=== PATIENT | female | born 1980 | race Caucasian/White ===

== ENCOUNTER 2023-05-18 11:02 | Inpatient (IN) | payer OTHER ==
[2023-05-18 11:55] VITALS: BMI 23.8
[2023-05-18] MEDS ORDERED: LORazepam 1 MG TABLET PO PRN (12:40)
[2023-05-18] MEDS ORDERED: NALOXONE HCL 0.4 MG/ML VIAL IM PRN (12:40)
[2023-05-18] MEDS ORDERED: LORazepam 2 MG TABLET PO ONE (12:40)
[2023-05-18] MEDS ORDERED: ACETAMINOPHEN 325 MG TABLET (FP) PO PRN (12:40)
[2023-05-18] MEDS ORDERED: DICYCLOMINE HCL 10 MG CAPSULE PO PRN (12:40)
[2023-05-18] MEDS ORDERED: POLYETHYLENE GLYCOL (HEALTHYLAX) 3350 17 GM PACKET PO PRN (12:40)
[2023-05-18] MEDS ORDERED: guaiFENesin 600 MG TABLET.ER (FP) PO PRN (12:40)
[2023-05-18] MEDS ORDERED: LOPERAMIDE HCL 2 MG CAPSULE PO PRN (12:40)
[2023-05-18] MEDS ORDERED: METHOCARBAMOL 500 MG TABLET PO PRN (12:40)
[2023-05-18] MEDS ORDERED: IBUPROFEN 600 MG TABLET (FP) PO PRN (12:40)
[2023-05-18] MEDS ORDERED: hydrOXYzine PAMOATE 25 MG CAPSULE (FP) PO PRN (12:40)
[2023-05-18] MEDS ORDERED: BISMUTH SUBSALICYLATE 262 MG/15 ML BTL PO PRN (12:40)
[2023-05-18] MEDS ORDERED: MAGNESIUM HYDROX 2400MG/30ML ORAL SUSPENSION 30 ML CUP PO PRN (12:40)
[2023-05-18] MEDS ORDERED: IBUPROFEN 400 MG TABLET (FP) PO PRN (12:40)
[2023-05-18] MEDS ORDERED: BENZOCAINE/MENTHOL (CHLORASEPTIC ) LOZENGE MM PRN (12:40)
[2023-05-18] MEDS ORDERED: BENZONATATE 200 MG CAPSULE PO PRN (12:40)
[2023-05-18] MEDS ORDERED: ONDANSETRON *ODT* 4 MG TABLET SL PRN (12:40)
[2023-05-18] MEDS ORDERED: MAG HYDROX/AL HYDROX/SIMETH 30 ML UNIT-DOSE CUP PO PRN (12:40)
[2023-05-18] MEDS ORDERED: NALOXONE HCL (KLOXXADO) 8 MG SPRAY NS PRN (12:40)
[2023-05-18] MEDS: PRENATAL VITAMINS W/ FOLIC ACID TABLET (FP) PO SCH (12:48)
[2023-05-18] MEDS: LORazepam 2 MG TABLET PO SCH ×2 (17:46→22:42)
[2023-05-18] MEDS: MELATONIN 5 MG TABLETS PO SCH (22:42)
[2023-05-18] MEDS: THIAMINE HCL 100 MG TABLET (FP) PO SCH (22:43)
[2023-05-18] MEDS ORDERED: DOCUSATE SODIUM 100 MG CAPSULE (FP) PO SCH (22:45)
[2023-05-18] MEDS: DOCUSATE SODIUM 100 MG CAPSULE (FP) PO SCH (23:21)
[2023-05-18] MEDS: HYDROCORTISONE 2.5% TOPICAL CREAM 30 GM TUBE TP SCH (23:22)
[2023-05-19] MEDS: LORazepam 2 MG TABLET PO SCH ×4 (05:43→22:25)
[2023-05-19] MEDS: HYDROCORTISONE 2.5% TOPICAL CREAM 30 GM TUBE TP SCH ×2 (10:28→22:24)
[2023-05-19] MEDS: PRENATAL VITAMINS W/ FOLIC ACID TABLET (FP) PO SCH (10:28)
[2023-05-19 11:42] LABS: HEMATOCRIT 26.4 % (32.4-45.2); HEMOGLOBIN 8.9 GM/dL (10.7-15.3); MCH 31.3 pg (25.7-33.7); MCHC 33.9 g/dl (32.0-36.0); MEAN CELL VOLUME 92.5 fl (80-96); MEAN PLT VOLUME 7.6 fl (7.5-11.1); PLATELET COUNT 363 10^3/uL (134-434); RBC 2.85 M/mm3 (3.60-5.2); RDW 14.4 % (11.6-15.6); WHITE BLOOD COUNT 10.1 K/mm3 (4.0-10.0)
[2023-05-19 12:22] LABS: CHLORIDE 98 mmol/L (98-107); POTASSIUM 3.6 mmol/L (3.5-5.1); SODIUM 134 mmol/L (136-145)
[2023-05-19 12:25] LABS: GLUCOSE,RANDOM 92 mg/dL (74-106)
[2023-05-19 12:26] LABS: ALBUMIN 1.9 g/dl (3.4-5.0); BLOOD UREA NITROGEN 11.3 mg/dL (7-18); CALCIUM 7.7 mg/dL (8.5-10.1); SGOT/AST 18 U/L (15-37); SGPT/ALT 20 U/L (13-61)
[2023-05-19 12:29] LABS: ANION GAP 10 mmol/L (4-13); CO2 26 mmol/L (21-32); CREATININE 0.9 mg/dL (0.55-1.3)
[2023-05-19 12:30] LABS: TOT PROT 5.7 g/dl (6.4-8.2)
[2023-05-19 12:31] LABS: BILIRUBIN,TOTAL 0.2 mg/dL (0.2-1)
[2023-05-19 12:32] LABS: ALK PHOS 78 U/L (45-117)
[2023-05-19] MEDS: LACTULOSE 20 GM/30 ML UDC (FOR ORAL USE ONLY) PO SCH ×2 (17:36→22:26)
[2023-05-19] MEDS ORDERED: DOCUSATE SODIUM 100 MG CAPSULE (FP) PO SCH (22:00)
[2023-05-19] MEDS: traZODone HCL 50 MG TABLET (FP) PO SCH (22:25)
[2023-05-19] MEDS: DOCUSATE SODIUM 100 MG CAPSULE (FP) PO SCH (22:25)
[2023-05-19] MEDS: MELATONIN 5 MG TABLETS PO SCH (22:26)
[2023-05-19] MEDS: THIAMINE HCL 100 MG TABLET (FP) PO SCH (22:26)
[2023-05-20] MEDS: LORazepam 1 MG TABLET PO SCH ×4 (06:00→23:24)
[2023-05-20] MEDS: HYDROCORTISONE 2.5% TOPICAL CREAM 30 GM TUBE TP SCH ×2 (10:23→23:09)
[2023-05-20] MEDS: LACTULOSE 20 GM/30 ML UDC (FOR ORAL USE ONLY) PO SCH ×4 (10:24→23:09)
[2023-05-20] MEDS: PRENATAL VITAMINS W/ FOLIC ACID TABLET (FP) PO SCH (10:24)
[2023-05-20] MEDS: DULoxetine HCL 30 MG CAPSULE.DR PO SCH (10:24)
[2023-05-20] MEDS: DOCUSATE SODIUM 100 MG CAPSULE (FP) PO SCH (23:07)
[2023-05-20] MEDS: traZODone HCL 50 MG TABLET (FP) PO SCH (23:08)
[2023-05-20] MEDS: MELATONIN 5 MG TABLETS PO SCH (23:08)
[2023-05-20] MEDS: THIAMINE HCL 100 MG TABLET (FP) PO SCH (23:08)
[2023-05-21] MEDS ORDERED: LORazepam 0.5 MG TABLET PO PRN
[2023-05-21] MEDS: LORazepam 0.5 MG TABLET PO SCH ×4 (05:44→22:22)
[2023-05-21] MEDS: LACTULOSE 20 GM/30 ML UDC (FOR ORAL USE ONLY) PO SCH ×4 (10:26→22:13)
[2023-05-21] MEDS: HYDROCORTISONE 2.5% TOPICAL CREAM 30 GM TUBE TP SCH ×2 (10:26→22:13)
[2023-05-21] MEDS: PRENATAL VITAMINS W/ FOLIC ACID TABLET (FP) PO SCH (10:27)
[2023-05-21] MEDS: DULoxetine HCL 30 MG CAPSULE.DR PO SCH (10:27)
[2023-05-21 11:25] LABS: EPI CELLS 16 /uL (0-25.1); HYALINE CASTS 1 /uL (0-3.1); URINE APPEARANCE CLEAR; URINE BACTERIA 365 /uL (0-1359); URINE BILIRUBIN NEGATIVE (NEGATIVE); URINE COLOR YELLOW; URINE GLUCOSE (UA) NEGATIVE (NEGATIVE); URINE KETONE NEGATIVE (NEGATIVE); URINE LEUK ESTERASE 2+ (NEGATIVE); URINE NITRITE NEGATIVE (NEGATIVE); URINE PROTEIN NEGATIVE (NEGATIVE); URINE RBC 6 /uL (0-23.9); URINE UROBILINOGEN 0.2 mg/dL (0.2-1.0); URINE WBC 150 /uL (0-25.8)
[2023-05-21] MEDS: MELATONIN 5 MG TABLETS PO SCH (22:13)
[2023-05-21] MEDS: THIAMINE HCL 100 MG TABLET (FP) PO SCH (22:13)
[2023-05-21] MEDS: traZODone HCL 50 MG TABLET (FP) PO SCH (22:13)
[2023-05-21] MEDS: DOCUSATE SODIUM 100 MG CAPSULE (FP) PO SCH (22:13)
[2023-05-22] MEDS ORDERED: LORazepam 0.5 MG TABLET PO ONE (05:00)
[2023-05-22 06:16] VITALS: TEMP 98.4
[2023-05-22 09:45] VITALS: BP 100/65; RESP 18
[2023-05-22 09:51] VITALS: PULSE 106
[2023-05-22] MEDS: HYDROCORTISONE 2.5% TOPICAL CREAM 30 GM TUBE TP SCH (10:39)
[2023-05-22] MEDS: PRENATAL VITAMINS W/ FOLIC ACID TABLET (FP) PO SCH (10:39)
[2023-05-22] MEDS: LACTULOSE 20 GM/30 ML UDC (FOR ORAL USE ONLY) PO SCH (10:40)
[2023-05-22] MEDS: DULoxetine HCL 30 MG CAPSULE.DR PO SCH (10:40)
== END 2023-05-22 10:43 | disposition home or self-care (01) | DRG 774 ==
LOC: YASAS 11:02 → Y3N 12:48
PROVIDERS: ADMIT Allergy & Immunology; ATTEND Surgery
PROC: HZ2ZZZZ Detoxification Services for Substance Abuse Treatment (ICD-10-PCS; principal; 2023-05-18)
DX: F10.230 Alcohol dependence with withdrawal, uncomplicated (principal); F14.20 Cocaine dependence, uncomplicated; F12.20 Cannabis dependence, uncomplicated; F17.210 Nicotine dependence, cigarettes, uncomplicated; F43.10 Post-traumatic stress disorder, unspecified; U07.1 COVID-19; E72.20 Disorder of urea cycle metabolism, unspecified; G47.00 Insomnia, unspecified; R30.0 Dysuria; Z86.59 Personal history of other mental and behavioral disorders; Z91.410 Personal history of adult physical and sexual abuse; Z86.19 Personal history of other infectious and parasitic diseases; Z88.1 Allergy status to other antibiotic agents
CPT/HCPCS: 36415; 80053; 80307; 81003; 81025; 82140; 85027; 86780; 87635; 87811; 93005; 93010; Q0162

== ENCOUNTER 2023-07-22 21:40 | Inpatient (IN) | payer OTHER ==
[2023-07-22 22:32] VITALS: BMI 23.3
[2023-07-22] MEDS ORDERED: POLYETHYLENE GLYCOL (HEALTHYLAX) 3350 17 GM PACKET PO PRN (22:48)
[2023-07-22] MEDS ORDERED: LOPERAMIDE HCL 2 MG CAPSULE PO PRN (22:48)
[2023-07-22] MEDS ORDERED: guaiFENesin 600 MG TABLET.ER (FP) PO PRN (22:48)
[2023-07-22] MEDS ORDERED: BENZOCAINE/MENTHOL (CHLORASEPTIC ) LOZENGE MM PRN (22:48)
[2023-07-22] MEDS ORDERED: MAG HYDROX/AL HYDROX/SIMETH 30 ML UNIT-DOSE CUP PO PRN (22:48)
[2023-07-22] MEDS ORDERED: MAGNESIUM HYDROX 2400MG/30ML ORAL SUSPENSION 30 ML CUP PO PRN (22:48)
[2023-07-22] MEDS ORDERED: chlordiazePOXIDE HCL 25 MG CAPSULE PO PRN (22:48)
[2023-07-22] MEDS ORDERED: NALOXONE HCL 0.4 MG/ML VIAL IM PRN (22:48)
[2023-07-22] MEDS ORDERED: NALOXONE HCL (KLOXXADO) 8 MG SPRAY NS PRN (22:48)
[2023-07-22] MEDS ORDERED: IBUPROFEN 400 MG TABLET (FP) PO PRN (22:48)
[2023-07-22] MEDS ORDERED: ACETAMINOPHEN 325 MG TABLET (FP) PO PRN (22:48)
[2023-07-22] MEDS ORDERED: NICOTINE POLACRILEX 2 MG GUM BUC PRN (22:48)
[2023-07-22] MEDS ORDERED: BENZONATATE 200 MG CAPSULE PO PRN (22:48)
[2023-07-22] MEDS: chlordiazePOXIDE HCL 25 MG CAPSULE PO ONE (22:55)
[2023-07-22] MEDS ORDERED: IBUPROFEN 600 MG TABLET (FP) PO ONE (23:00)
[2023-07-22] MEDS: IBUPROFEN 600 MG TABLET (FP) PO PRN (23:04)
[2023-07-23] MEDS: ONDANSETRON *ODT* 4 MG TABLET SL PRN (03:41)
[2023-07-23] MEDS: hydrOXYzine PAMOATE 25 MG CAPSULE (FP) PO PRN (03:42)
[2023-07-23] MEDS: chlordiazePOXIDE HCL 25 MG CAPSULE PO SCH (05:26)
[2023-07-23] MEDS: NICOTINE 14 MG/24 HOURS TOPICAL PATCH TD SCH (10:11)
[2023-07-23] MEDS: PRENATAL VITAMINS W/ FOLIC ACID TABLET (FP) PO SCH (10:11)
[2023-07-23] MEDS: DICYCLOMINE HCL 10 MG CAPSULE PO PRN (10:13)
[2023-07-23 12:46] LABS: CHLORIDE 98 mmol/L (98-107); POTASSIUM 3.5 mmol/L (3.5-5.1); SODIUM 136 mmol/L (136-145)
[2023-07-23 12:49] LABS: HEMATOCRIT 32.4 % (32.4-45.2); HEMOGLOBIN 11.3 GM/dL (10.7-15.3); MCH 32.7 pg (25.7-33.7); MCHC 34.8 g/dl (32.0-36.0); MEAN CELL VOLUME 93.9 fl (80-96); MEAN PLT VOLUME 6.9 fl (7.5-11.1); PLATELET COUNT 104 10^3/uL (134-434); RBC 3.45 M/mm3 (3.60-5.2); RDW 15.7 % (11.6-15.6); WHITE BLOOD COUNT 3.1 K/mm3 (4.0-10.0)
[2023-07-23 12:51] LABS: CALCIUM 8.3 mg/dL (8.5-10.1)
[2023-07-23 12:52] LABS: ALBUMIN 2.9 g/dl (3.4-5.0); ANION GAP 8 mmol/L (4-13); BLOOD UREA NITROGEN 9.9 mg/dL (7-18); CO2 31 mmol/L (21-32); GLUCOSE,RANDOM 91 mg/dL (74-106)
[2023-07-23 12:55] LABS: CREATININE 0.6 mg/dL (0.55-1.3); SGOT/AST 304 U/L (15-37); SGPT/ALT 217 U/L (13-61)
[2023-07-23 12:58] LABS: ALK PHOS 115 U/L (45-117)
[2023-07-23 13:11] LABS: BILIRUBIN,TOTAL 0.6 mg/dL (0.2-1)
[2023-07-23] MEDS: LORazepam 2 MG TABLET PO SCH (18:00)
[2023-07-23] MEDS: METHOCARBAMOL 500 MG TABLET PO PRN (20:35)
[2023-07-23] MEDS: LORazepam 0.5 MG TABLET PO PRN (20:37)
[2023-07-23] MEDS: THIAMINE HCL 100 MG TABLET (FP) PO SCH (22:21)
[2023-07-23] MEDS: MELATONIN 5 MG TABLETS PO SCH (22:21)
[2023-07-24] MEDS ORDERED: chlordiazePOXIDE HCL 25 MG CAPSULE PO SCH (05:00)
[2023-07-24] MEDS: LORazepam 1 MG TABLET PO SCH (05:22)
[2023-07-24] MEDS: BISMUTH SUBSALICYLATE 524 MG/30 ML PO PRN (16:51)
[2023-07-24] MEDS: PHENAZOPYRIDINE HCL 100 MG TABLET (FP) PO ONE (22:18)
[2023-07-24 22:24] LABS: EPI CELLS 20 /uL (0-25.1); HYALINE CASTS 0 /uL (0-3.1); URINE APPEARANCE CLEAR; URINE BACTERIA 131 /uL (0-1359); URINE BILIRUBIN NEGATIVE (NEGATIVE); URINE COLOR YELLOW; URINE GLUCOSE (UA) NEGATIVE (NEGATIVE); URINE KETONE NEGATIVE (NEGATIVE); URINE LEUK ESTERASE 1+ (NEGATIVE); URINE NITRITE NEGATIVE (NEGATIVE); URINE PROTEIN NEGATIVE (NEGATIVE); URINE RBC 7 /uL (0-23.9); URINE UROBILINOGEN 0.2 mg/dL (0.2-1.0); URINE WBC 16 /uL (0-25.8)
[2023-07-25] MEDS ORDERED: chlordiazePOXIDE HCL 10 MG CAPSULE PO PRN
[2023-07-25] MEDS ORDERED: chlordiazePOXIDE HCL 10 MG CAPSULE PO SCH (05:00)
[2023-07-25] MEDS: LORazepam 0.5 MG TABLET PO SCH (05:43)
[2023-07-25] MEDS: NITROFURANTOIN MONOHYD/M-CRYST 100 MG CAPSULE PO SCH (16:10)
[2023-07-25] MEDS ORDERED: PREGABALIN 50 MG CAPSULE PO SCH (22:00)
[2023-07-25] MEDS ORDERED: traZODone HCL 100 MG TABLET (FP) PO SCH (22:00)
[2023-07-25] MEDS ORDERED: traZODone HCL 50 MG TABLET (FP) PO SCH (22:00)
[2023-07-25] MEDS: traZODone HCL 100 MG TABLET (FP) PO SCH (22:16)
[2023-07-26] MEDS ORDERED: chlordiazePOXIDE HCL 10 MG CAPSULE PO SCH (05:00)
[2023-07-26] MEDS: LORazepam 0.5 MG TABLET PO ONE (05:31)
[2023-07-27] MEDS ORDERED: chlordiazePOXIDE HCL 10 MG CAPSULE PO ONE (05:00)
[2023-07-27 09:11] VITALS: RESP 18
[2023-07-27 12:55] VITALS: BP 116/71; PULSE 65; TEMP 97.5
== END 2023-07-27 13:56 | disposition other institution (70) | DRG 775 ==
LOC: YASAS 21:40 → Y3N 23:13
PROVIDERS: ADMIT Surgery; ATTEND Allergy & Immunology
PROC: HZ2ZZZZ Detoxification Services for Substance Abuse Treatment (ICD-10-PCS; principal; 2023-07-22)
DX: F10.230 Alcohol dependence with withdrawal, uncomplicated (principal); F12.10 Cannabis abuse, uncomplicated; F17.210 Nicotine dependence, cigarettes, uncomplicated; F19.24 Other psychoactive substance dependence with psychoactive substance-induced mood disorder; F41.9 Anxiety disorder, unspecified; G47.00 Insomnia, unspecified; N39.0 Urinary tract infection, site not specified; B18.2 Chronic viral hepatitis C; R74.8 Abnormal levels of other serum enzymes; R74.01 Elevation of levels of liver transaminase levels; Z88.1 Allergy status to other antibiotic agents
CPT/HCPCS: 36415; 80053; 80305; 80307; 81003; 81025; 85027; 86780; 87086; 87635; 87811; 93005; 93010; Q0162